=== PATIENT | male | born 1955 | race Caucasian/White ===

== ENCOUNTER 2019-01-11 17:20 | Emergency (ER) | payer MEDICAID ==
[~2019-01-11] VITALS: Ht 177.8 cm; Wt 85.0 kg
[2019-01-11] MEDS ORDERED: DEXAMETHASONE 4MG/ML 1ML VIAL IV ONE (18:30)
[2019-01-11 20:00] VITALS: BP 139/87
== END 2019-01-11 23:09 | disposition left against medical advice (07) ==
LOC: ER 17:20
DX: M54.12 Radiculopathy, cervical region (principal); I10 Essential (primary) hypertension; F12.10 Cannabis abuse, uncomplicated; F15.10 Other stimulant abuse, uncomplicated; F17.200 Nicotine dependence, unspecified, uncomplicated
CPT/HCPCS: 96374; 99283; J1100

== ENCOUNTER 2020-01-04 08:13 | Emergency (ER) | payer MEDICAID ==
[~2020-01-04] VITALS: Ht 182.9 cm; Wt 90.0 kg
[2020-01-04] MEDS ORDERED: MORPHINE SULFATE 4 MG/ML CPJ (NOT FOR IM USE) IV ONE (08:45)
[2020-01-04 09:15] VITALS: BP 161/110
[2020-01-04 09:52] LABS: BASOPHILS % 0.9 % (0.0-2.0); EOSINOPHILS % 2.2 % (0.0-5.0); HEMATOCRIT. 38.7 % (42.0-52.0); HEMOGLOBIN. 12.7 g/dL (14.0-18.0); LYMPHOCYTES % 15.6 % (20.0-50.0); MEAN CORPUSCULAR HEMOGLOBIN 29.1 pg (28.0-32.0); MEAN CORPUSCULAR VOLUME 88.9 fL (80.0-94.0); MEAN PLATELET VOLUME 8.1 fl (7.4-10.4); MONOCYTES % 8.2 % (2.0-8.0); NEUTROPHILS % 73.1 % (40.0-76.0); PLATELET 273 x1000/uL (130-400); RED BLOOD CELL COUNT 4.35 mill/uL (4.7-6.1); RED CELL DISTRIBUTION WIDTH 15.9 % (11.6-14.6)
[2020-01-04 09:55] LABS: CHLORIDE 105 mEq/L (98-107)
[2020-01-04 10:02] LABS: PROTHROMBIN TIME 10.5 sec (9.6-11.0)
== END 2020-01-04 11:16 | disposition home or self-care (01) ==
LOC: ER 08:21
DX: M50.10 Cervical disc disorder with radiculopathy, unspecified cervical region (principal); I10 Essential (primary) hypertension; F17.210 Nicotine dependence, cigarettes, uncomplicated; Z98.1 Arthrodesis status
CPT/HCPCS: 36415; 72125; 80053; 85025; 85610; 93005; 96374; 99285; J2270